=== PATIENT | male | born 1955 | race Caucasian/White ===

== ENCOUNTER 2020-10-25 05:06 | Observation (INO) | payer MEDICARE, BC ==
[2020-10-25] MEDS ORDERED: Sodium Chloride 0.9% 10 ML Syringe FLUSH PRN ×2 (05:39→06:17)
--- NOTE | 2020-10-25 05:53 | EDM.PDOC ---
<Sammy López - Last Filed: 10/25/20 08:38> ED HPI GENERAL MEDICAL PROBLEM - General Chief Complaint: Respiratory Problem Stated Complaint: [facility] Time Seen by Provider: 10/25/20 05:19 Source of Information: Reports: Patient History Limitations: Reports: No Limitations - Related Data Allergies Allergy/AdvReac Type Severity Reaction Status Date / Time amoxicillin Allergy Rash Verified 10/25/20 12:41 Home Meds: Home Meds Hydrocodone/Acetaminophen [Hydrocodone-Acetamin 7.5-325] 1 tab PO DAILY PRN 0 10/12 [History] Levothyroxine [Synthroid] 25 mcg PO ACBREAKFAST 10/25/20 [History] Zolpidem Tartrate 10 mg PO BEDTIME PRN 10/25/20 [History] Apixaban [Eliquis] 10 mg PO BID #40 tablet 10/26/20 [Rx] Azithromycin 250 mg PO DAILY #3 tablet 10/26/20 [Rx] Levothyroxine 0 mcg PO ACBREAKFAST tablet 10/26/20 [Rx] ED ROS GENERAL - Review of Systems Review Of Systems: See Below Constitutional: Reports: Fever, Chills HEENT: Reports: No Symptoms Respiratory: Reports: Shortness of Breath Cardiovascular: Reports: Chest Pain Endocrine: Reports: No Symptoms GI/Abdominal: Reports: No Symptoms : Reports: No Symptoms Musculoskeletal: Reports: No Symptoms Skin: Reports: No Symptoms Neurological: Reports: No Symptoms ED EXAM, GENERAL - Physical Exam Exam: See Below Exam Limited By: No Limitations General Appearance: Alert, No Apparent Distress Ears: Normal External Exam Nose: Normal Inspection Head: Atraumatic, Normocephalic Neck: Normal Inspection Respiratory/Chest: No Respiratory Distress, Lungs Clear, Normal Breath Sounds Cardiovascular: Regular Rate, Rhythm, No Edema, No Murmur GI/Abdominal: Soft, Non-Tender, No Organomegaly, No Mass Extremities: Normal Inspection Neurological: Alert, Oriented, No Motor/Sensory Deficits Course - Re-Assessments/Exams Free Text/Narrative Re-Assessment/Exam: 10/25/20 08:[address] Currie. Dr Currie ordered labs, EKG and a CT angio of his chest. His EKG shows a NSR with no acute changes. His WBC is elevated at 14.34. His glucose is elevated at 168. His troponin is negative. The influenza and COVID [address] angio of his chest shows right-sided pulmonary embolism within the segmental and subsegmental branches. Small right-sided pleural effusion as well as increased density within the right lung base most likely representing areas of parenchymal contusion and early infarct. Mild coronary artery calcification and incidental right renal cyst. I ordered eliquis 5mg PO. I also ordered blood cultures and lactic acid and rocephin. I am concerned he may have pneumonia also. I do not feel it is safe to send him home. I talked to our hospitalist Dr Shore and he agreed to the admission. Departure - Departure Time of Disposition: 08:50 Disposition: Refer to Observation Condition: Fair Clinical Impression: Pulmonary embolism and infarction Pneumonia Qualifiers: Pneumonia type: due to unspecified organism Laterality: right Lung location: lower lobe of lung Qualified Code(s): J18.9 - Pneumonia, unspecified organism - Discharge Information <Prashanth Currie - Last Filed: 10/27/20 17:00> ED HPI GENERAL MEDICAL PROBLEM - General Source of Information: Reports: Patient History Limitations: Reports: No Limitations - History of Present Illness INITIAL COMMENTS - FREE TEXT/NARRATIVE: Patient reports onset of symptoms 10/22/2020 Symptoms began with diarrhea On Saturday evening 10/24/2020, he developed fever and chills after getting out of the shower He woke this morning from sleep with shortness of breath and pain in right shoulder/scapular area Pain severity rated 3-4/10, primarily when he takes deep breaths, and worse when he coughs He coughs whenever he attempts to take a deep breath, and no cough was present last night He denies nausea, vomiting Denies body aches, leg pain, leg swelling Endorses mild abdominal discomfort associated with the diarrhea He spent winter in [facility] He drove back here from [place] last week over the course of 2 days He reports having COVID-19 in May 2020 He did not require medical attention, and recovered uneventfully Past Medical History Endocrine/Metabolic History: Reports: Hypothyroidism - Infectious Disease History Infectious Disease History: Reports: Novel Coronavirus - Past Surgical History GI Surgical History: Reports: Appendectomy, EGD, Hernia, Abdominal Social & Family History - Tobacco Use Tobacco Use Status *Q: Never Tobacco User ED ROS GENERAL - Review of Systems Review Of Systems: See Below Free Text/Narrative/Comment: Constitutional - fever; chills Eyes - no eye pain; no visual disturbance ENT - no rhinorrhea; no congestion; no epistaxis Cardiovascular - no chest pain Respiratory - shortness of breath; cough Gastrointestinal - no abdominal pain; no nausea; no vomiting; diarrhea Genitourinary - no dysuria Musculoskeletal - no neck pain; right upper back pain; no extremity injury Neurological - no headache; no speech disturbance; no weakness ED EXAM, GENERAL - Physical Exam Exam: See Below Free Text/Narrative:: Constitutional - awake; alert; mild pain distress Head - no facial swelling or weakness Eyes - extra ocular motion intact; conjunctiva normal; pupils equal and reactive to light ENT - no nasal deformity; no epistaxis; normal phonation; mucus membranes moist; Neck - no swelling Respiratory - normal respiratory effort; no wheezing; no stridor; few crackles right base Cardiovascular - regular rhythm; normal rate; S1; S2; grade 1-2/6 systolic murmur; trace pitting edema above both ankles GI/Abdomen - normal bowel sounds; soft; mild, generalized tenderness; no rebound; no guarding; no mass Musculoskeletal - grossly normal strength and motion; no deformity Skin - warm; dry Neurologic - normal speech; no weakness Psychiatric - normal mood and affect; memory and attention normal #1 Interpretation EKG Date: 10/25/20 Time: 05:58 Rhythm: NSR Rate (Beats/Min): 84 [place]: Normal P-Wave: Present QRS: Normal ST-T: Normal Comparison: NA - No Prior EKG Course - Vital Signs Text/Narrative:: . Considered etiologies included: Diarrhea, febrile illness, chills, pleurisy/pleuritis, pulmonary embolism, pneumonia, viral syndrome, sepsis, bacteremia, COVID-19 Symptoms and examination were discussed No specific treatment or intervention was required at initial evaluation by writ er Analgesic treatment was declined Investigations were initiated Care was endorsed to Dr López at [address] and lab results and further disposition Last Recorded V/S: Last Vital Signs Temp 36.5 C 10/26/20 11:47 Pulse 79 10/26/20 11:47 Resp 18 10/26/20 11:47 BP 109/71 10/26/20 11:47 Pulse Ox 93 L 10/26/20 11:47 - Orders/Labs/Meds Labs: Laboratory Tests 10/25/20 10/25/20 10/25/20 Range/Units 05:46 05:46 06:26 WBC 14.34 H (4.23-9.07) K/mm3 RBC 4.73 (4.63-6.08) M/mm3 Hgb 14.0 (13.7-17.5) gm/dl Hct 41.9 (40.1-51.0) % MCV 88.6 (79.0-92.2) fl MCH 29.6 (25.7-32.2) pg MCHC 33.4 (32.2-35.5) g/dl RDW Std Deviation 42.6 (35.1-43.9) fL Plt Count 234 (163-337) K/mm3 MPV 10.4 (9.4-12.3) fl Neut % (Auto) 76.7 H (34.0-67.9) % Lymph % (Auto) 7.9 L (21.8-53.1) % Thayer % (Auto) 14.4 H (5.3-12.2) % Eos % (Auto) 0.6 L (0.8-7.0) Baso % (Auto) 0.1 (0.1-1.2) % Neut # (Auto) 11.01 H (1.78-5.38) K/mm3 Lymph # (Auto) 1.13 L (1.32-3.57) K/mm3 Thayer # (Auto) 2.06 H (0.30-0.82) K/mm3 Eos # (Auto) 0.09 (0.04-0.54) K/mm3 Baso # (Auto) 0.01 (0.01-0.08) K/mm3 Manual Slide Review Abnormal smear Sodium 137 (136-145) mEq/L Potassium 4.1 (3.5-5.1) mEq/L Chloride 102 (98-107) mEq/L Carbon Dioxide 24 (21-32) mEq/L Anion Gap 15.1 H (5-15) BUN 9 (7-18) mg/dL Creatinine 1.1 (0.7-1.3) mg/dL Est Cr Clr Drug Dosing 72.51 mL/min Estimated GFR (MDRD) > 60 (>60) mL/min BUN/Creatinine Ratio 8.2 L (14-18) Glucose 168 H (80-115) mg/dL Hemoglobin A1c ( - 5.6) % Lactic Acid (0.4-2.0) mmol/L Calcium 7.9 L (8.5-10.1) mg/dL Total Bilirubin 0.9 (0.2-1.0) mg/dL AST 9 L (15-37) U/L ALT 21 (16-63) U/L Alkaline Phosphatase 57 (46-116) U/L Troponin I < 0.017 (0.00-0.056) ng/mL Total Protein 6.8 (6.4-8.2) g/dl Albumin 2.9 L (3.4-5.0) g/dl Globulin 3.9 gm/dL Albumin/Globulin Ratio 0.7 L (1-2) Procalcitonin ng/mL Influenza Type A RNA Negative (NEGATIVE) Influenza Type B RNA Negative (NEGATIVE) Mycoplasma pneumon IgM (NEGATIVE) SARS-CoV-2 RNA ([place]) Negative (NEGATIVE) 10/25/20 10/25/20 10/25/20 Range/Units 06:26 06:26 06:26 WBC (4.23-9.07) K/mm3 RBC (4.63-6.08) M/mm3 Hgb (13.7-17.5) gm/dl Hct (40.1-51.0) % MCV (79.0-92.2) fl MCH (25.7-32.2) pg MCHC (32.2-35.5) g/dl RDW Std Deviation (35.1-43.9) fL Plt Count (163-337) K/mm3 MPV (9.4-12.3) fl Neut % (Auto) (34.0-67.9) % Lymph % (Auto) (21.8-53.1) % Thayer % (Auto) (5.3-12.2) % Eos % (Auto) (0.8-7.0) Baso % (Auto) (0.1-1.2) % Neut # (Auto) (1.78-5.38) K/mm3 Lymph # (Auto) (1.32-3.57) K/mm3 Thayer # (Auto) (0.30-0.82) K/mm3 Eos # (Auto) (0.04-0.54) K/mm3 Baso # (Auto) (0.01-0.08) K/mm3 Manual Slide Review Sodium (136-145) mEq/L Potassium (3.5-5.1) mEq/L Chloride (98-107) mEq/L Carbon Dioxide (21-32) mEq/L Anion Gap (5-15) BUN (7-18) mg/dL Creatinine (0.7-1.3) mg/dL Est Cr Clr Drug Dosing mL/min Estimated GFR (MDRD) (>60) mL/min BUN/Creatinine Ratio (14-18) Glucose (80-115) mg/dL Hemoglobin A1c 6.4 H ( - 5.6) % Lactic Acid (0.4-2.0) mmol/L Calcium (8.5-10.1) mg/dL Total Bilirubin (0.2-1.0) mg/dL AST (15-37) U/L ALT (16-63) U/L Alkaline Phosphatase (46-116) U/L Troponin I (0.00-0.056) ng/mL Total Protein (6.4-8.2) g/dl Albumin (3.4-5.0) g/dl Globulin gm/dL Albumin/Globulin Ratio (1-2) Procalcitonin 0.12 H ng/mL Influenza Type A RNA (NEGATIVE) Influenza Type B RNA (NEGATIVE) Mycoplasma pneumon IgM Negative (NEGATIVE) SARS-CoV-2 RNA ([facility]) (NEGATIVE) 10/25/20 Range/Units 08:53 WBC (4.23-9.07) K/mm3 RBC (4.63-6.08) M/mm3 Hgb (13.7-17.5) gm/dl Hct (40.1-51.0) % MCV (79.0-92.2) fl MCH (25.7-32.2) pg MCHC (32.2-35.5) g/dl RDW Std Deviation (35.1-43.9) fL Plt Count (163-337) K/mm3 MPV (9.4-12.3) fl Neut % (Auto) (34.0-67.9) % Lymph % (Auto) (21.8-53.1) % Thayer % (Auto) (5.3-12.2) % Eos % (Auto) (0.8-7.0) Baso % (Auto) (0.1-1.2) % Neut # (Auto) (1.78-5.38) K/mm3 Lymph # (Auto) (1.32-3.57) K/mm3 Thayer # (Auto) (0.30-0.82) K/mm3 Eos # (Auto) (0.04-0.54) K/mm3 Baso # (Auto) (0.01-0.08) K/mm3 Manual Slide Review Sodium (136-145) mEq/L Potassium (3.5-5.1) mEq/L Chloride (98-107) mEq/L Carbon Dioxide (21-32) mEq/L Anion Gap (5-15) BUN (7-18) mg/dL Creatinine (0.7-1.3) mg/dL Est Cr Clr Drug Dosing mL/min Estimated GFR (MDRD) (>60) mL/min BUN/Creatinine Ratio (14-18) Glucose (80-115) mg/dL Hemoglobin A1c ( - 5.6) % Lactic Acid 1.2 (0.4-2.0) mmol/L Calcium (8.5-10.1) mg/dL Total Bilirubin (0.2-1.0) mg/dL AST (15-37) U/L ALT (16-63) U/L Alkaline Phosphatase (46-116) U/L Troponin I (0.00-0.056) ng/mL Total Protein (6.4-8.2) g/dl Albumin (3.4-5.0) g/dl Globulin gm/dL Albumin/Globulin Ratio (1-2) Procalcitonin ng/mL Influenza Type A RNA (NEGATIVE) Influenza Type B RNA (NEGATIVE) Mycoplasma pneumon IgM (NEGATIVE) SARS-CoV-2 RNA ([place]) (NEGATIVE) Meds: Medications Discontinued Medications Generic Name Dose Route Start Last Admin Trade Name Freq PRN Reason Stop Dose Admin Acetaminophen 650 mg 10/25/20 09:54 Acetaminophen 325 Mg Tab PO Q4H PRN Pain (Mild 1-3)/fever Hydrocodone Bitart/Acetaminophen 1 tab 10/25/20 21:08 10/26/20 08:30 Acetaminophen/Hydrocodone 325-5 Mg Tab PO 1 tab Q4H PRN Administration Pain Albuterol/Ipratropium 3 ml 10/25/20 09:54 Albuterol/Ipratropium 3.0-0.5 Mg/3 Ml Neb Soln NEB Q4H PRN Shortness Of Breath/wheezing Apixaban 5 mg 10/25/20 08:34 10/25/20 09:49 Apixaban 5 Mg Tab PO 10/25/20 08:35 5 mg ONETIME ONE Administration Apixaban 5 mg 10/25/20 09:48 10/25/20 10:13 Apixaban 5 Mg Tab PO 10/25/20 09:49 5 mg ONETIME ONE Administration Apixaban 10 mg 10/25/20 21:00 10/26/20 08:30 Apixaban 5 Mg Tab PO 10/31/20 21:01 10 mg BID LUIS ANTONIO Administration Docusate Sodium 100 mg 10/25/20 09:54 Docusate Sodium 100 Mg Cap PO BID PRN Constipation Sodium Chloride 45 mls @ 40 mls/hr 10/25/20 06:30 10/25/20 07:40 Normal Saline IV 40 mls/hr ASDIRECTED LUIS ANTONIO Administration Ceftriaxone Sodium 2 gm/ 100 mls @ 200 mls/hr 10/25/20 08:34 10/25/20 09:28 Sodium Chloride IV 10/25/20 09:03 200 mls/hr ONETIME ONE Administration Ceftriaxone Sodium 2 gm/ 100 mls @ 200 mls/hr 10/26/20 08:30 Sodium Chloride IV Q24H LUIS ANTONIO Lactated Ringer's 1,000 mls @ 100 mls/hr 10/25/20 10:00 10/25/20 10:20 Ringers, Lactated IV 10/25/20 19:59 100 mls/hr ASDIRECTED LUIS ANTONIO Administration Azithromycin 500 mg/ Sodium 250 mls @ 250 mls/hr 10/25/20 11:00 10/26/20 11:38 Chloride IV 10/27/20 11:59 250 mls/hr Q24H LUIS ANTONIO Administration Ceftriaxone Sodium 2 gm/ 100 mls @ 200 mls/hr 10/26/20 09:00 10/26/20 08:32 Sodium Chloride IV 200 mls/hr Q24H LUIS ANTONIO Administration Iopamidol 100 ml 10/25/20 06:17 10/25/20 07:40 Iopamidol 755 Mg/Ml 100 Ml Bottle IVPUSH 10/25/20 06:18 100 ml ONETIME ONE Administration Ketorolac Tromethamine 15 mg 10/25/20 21:07 10/25/20 21:39 Ketorolac 15 Mg/Ml Sdv IVPUSH 10/25/20 21:08 15 mg ONETIME ONE Administration Levothyroxine Sodium 50 mcg 10/26/20 06:00 Levothyroxine 50 Mcg Tab PO ACBREAKFAST LUIS NATONIO Levothyroxine Sodium 0 mcg 10/26/20 09:00 10/26/20 08:32 Levothyroxine 25 Mcg Tab Ptom PO 25 mcg ACBREAKFAST LUIS ANTONIO Administration Magnesium Hydroxide 30 ml 10/25/20 09:54 Magnesium Hydroxide 400 Mg/5 Ml Susp 30 Ml Cup PO Q12H PRN Constipation Miscellaneous Information 1 ea 10/26/20 09:00 10/26/20 10:08 Remove Nicotine Patch TRDERM Not Given DAILY [facility] Morphine Sulfate 4 mg 10/25/20 21:08 Morphine 4 Mg/Ml Syringe IVPUSH Q3H PRN Pain Nicotine 14 mg 10/25/20 12:45 10/26/20 08:34 Nicotine 14 Mg/24 Hr Patch TRDERM Not Given DAILY [facility] Ondansetron HCl 4 mg 10/25/20 09:54 Ondansetron 4 Mg/2 Ml Sdv IV Q6H PRN Nausea/Vomiting Sodium Chloride 10 ml 10/25/20 05:39 10/25/20 05:52 Sodium Chloride 0.9% 10 Ml Syringe FLUSH 10 ml ASDIRECTED PRN Administration Keep Vein Open Sodium Chloride 10 ml 10/25/20 06:17 10/25/20 07:40 Sodium Chloride 0.9% 10 Ml Syringe FLUSH 10 ml ONETIME PRN Administration Keep Vein Open Sepsis Event Note (ED) - Evaluation Sepsis Screening Result: No Definite Risk
[2020-10-25] MEDS ORDERED: Iopamidol 755 Mg/ML 100 ML Bottle IVPUSH ONE (06:17)
[2020-10-25 06:29] LABS: CORONAVIRUS COVID-19 NAA NEGATIVE (NEGATIVE)
[2020-10-25] MEDS ORDERED: Sodium Chloride 0.9% 45 ML IV SCH (06:30)
--- NOTE | 2020-10-25 08:02 | CT ---
CT chest Technique: Multiple axial sections through the chest were obtained. Study was performed as a CT pulmonary angiogram. Comparison: No prior chest imaging is available. Findings: There are filling defects being seen within the segmental and subsegmental branches within the right lower lung. No left-sided pulmonary embolism is seen. Thoracic aorta shows no aneurysm. No mediastinal adenopathy is seen. Mild coronary artery calcification is noted. Visualized upper abdominal structures show right-sided renal cyst. No acute upper abdominal abnormality is appreciated. Small right-sided pleural effusion is seen. Increased parenchymal density is noted within the right lung base most likely representing areas of parenchymal hemorrhage/infarct. Bone window settings were reviewed which show slight degenerative change scattered within the spine. No acute osseous abnormality is appreciated. Impression: 1. Right-sided pulmonary embolism within the segmental and subsegmental branches. 2. Small right-sided pleural effusion as well as increased density within the right lung base most likely representing areas of parenchymal contusion and early infarct. 3. Mild coronary artery calcification and incidental right renal cyst. Diagnostic code #5
[2020-10-25] MEDS ORDERED: cefTRIAXone 2 GM in Sodium Chloride 0.9% 100 ML IV ONE (08:34)
[2020-10-25] MEDS ORDERED: Apixaban 5 MG Tab PO ONE ×2 (08:34→09:48)
--- NOTE | 2020-10-25 08:50 | PCM.HP.2 ---
<MoneJamil - Last Filed: 10/25/20 12:14> H&P History of Present Illness - General Admit Problem/Dx: Admission Diagnosis/Problem Admission Diagnosis/Problem Pulmonary embolism with infarction - Related Data Allergies/Adverse Reactions: Allergies Allergy/AdvReac Type Severity Reaction Status Date / Time amoxicillin Allergy Rash Verified 10/25/20 12:41 Home Medications: Home Meds Hydrocodone/Acetaminophen [Hydrocodone-Acetamin 7.5-325] 1 tab PO DAILY PRN 10/25/20 [History] Levothyroxine [Synthroid] 25 mcg PO ACBREAKFAST 10/25/20 [History] Zolpidem Tartrate 10 mg PO BEDTIME PRN 10/25/20 [History] Exam - Vital Signs Vital Signs: Last Vital Signs Temp 98.6 F 10/25/20 09:20 Pulse 83 10/25/20 09:44 Resp 22 H 10/25/20 09:44 BP 142/78 H 10/25/20 09:44 Pulse Ox 96 10/25/20 09:44 - Patient Data Lab Results Last 24 hrs: Laboratory Results - last 24 hr 10/25/20 10/25/20 10/25/20 Range/Units 05:46 05:46 06:26 WBC 14.34 H (4.23-9.07) K/mm3 RBC 4.73 (4.63-6.08) M/mm3 Hgb 14.0 (13.7-17.5) gm/dl Hct 41.9 (40.1-51.0) % MCV 88.6 (79.0-92.2) fl MCH 29.6 (25.7-32.2) pg MCHC 33.4 (32.2-35.5) g/dl RDW Std Deviation 42.6 (35.1-43.9) fL Plt Count 234 (163-337) K/mm3 MPV 10.4 (9.4-12.3) fl Neut % (Auto) 76.7 H (34.0-67.9) % Lymph % (Auto) 7.9 L (21.8-53.1) % [place] % (Auto) 14.4 H (5.3-12.2) % Eos % (Auto) 0.6 L (0.8-7.0) Baso % (Auto) 0.1 (0.1-1.2) % Neut # (Auto) 11.01 H (1.78-5.38) K/mm3 Lymph # (Auto) 1.13 L (1.32-3.57) K/mm3 [place] # (Auto) 2.06 H (0.30-0.82) K/mm3 Eos # (Auto) 0.09 (0.04-0.54) K/mm3 Baso # (Auto) 0.01 (0.01-0.08) K/mm3 Manual Slide Review Abnormal smear Sodium 137 (136-145) mEq/L Potassium 4.1 (3.5-5.1) mEq/L Chloride 102 (98-107) mEq/L Carbon Dioxide 24 (21-32) mEq/L Anion Gap 15.1 H (5-15) BUN 9 (7-18) mg/dL Creatinine 1.1 (0.7-1.3) mg/dL Est Cr Clr Drug Dosing 72.51 mL/min Estimated GFR (MDRD) > 60 (>60) mL/min BUN/Creatinine Ratio 8.2 L (14-18) Glucose 168 H (80-115) mg/dL Hemoglobin A1c ( - 5.6) % Lactic Acid (0.4-2.0) mmol/L Calcium 7.9 L (8.5-10.1) mg/dL Total Bilirubin 0.9 (0.2-1.0) mg/dL AST 9 L (15-37) U/L ALT 21 (16-63) U/L Alkaline Phosphatase 57 (46-116) U/L Troponin I < 0.017 (0.00-0.056) ng/mL Total Protein 6.8 (6.4-8.2) g/dl Albumin 2.9 L (3.4-5.0) g/dl Globulin 3.9 gm/dL Albumin/Globulin Ratio 0.7 L (1-2) Influenza Type A RNA Negative (NEGATIVE) Influenza Type B RNA Negative (NEGATIVE) Mycoplasma pneumon IgM (NEGATIVE) SARS-CoV-2 RNA ([place]) Negative (NEGATIVE) 10/25/20 10/25/20 10/25/20 Range/Units 06:26 06:26 08:53 WBC (4.23-9.07) K/mm3 RBC (4.63-6.08) M/mm3 Hgb (13.7-17.5) gm/dl Hct (40.1-51.0) % MCV (79.0-92.2) fl MCH (25.7-32.2) pg MCHC (32.2-35.5) g/dl RDW Std Deviation (35.1-43.9) fL Plt Count (163-337) K/mm3 MPV (9.4-12.3) fl Neut % (Auto) (34.0-67.9) % Lymph % (Auto) (21.8-53.1) % [place] % (Auto) (5.3-12.2) % Eos % (Auto) (0.8-7.0) Baso % (Auto) (0.1-1.2) % Neut # (Auto) (1.78-5.38) K/mm3 Lymph # (Auto) (1.32-3.57) K/mm3 [place] # (Auto) (0.30-0.82) K/mm3 Eos # (Auto) (0.04-0.54) K/mm3 Baso # (Auto) (0.01-0.08) K/mm3 Manual Slide Review Sodium (136-145) mEq/L Potassium (3.5-5.1) mEq/L Chloride (98-107) mEq/L Carbon Dioxide (21-32) mEq/L Anion Gap (5-15) BUN (7-18) mg/dL Creatinine (0.7-1.3) mg/dL Est Cr Clr Drug Dosing mL/min Estimated GFR (MDRD) (>60) mL/min BUN/Creatinine Ratio (14-18) Glucose (80-115) mg/dL Hemoglobin A1c 6.4 H ( - 5.6) % Lactic Acid 1.2 (0.4-2.0) mmol/L Calcium (8.5-10.1) mg/dL Total Bilirubin (0.2-1.0) mg/dL AST (15-37) U/L ALT (16-63) U/L Alkaline Phosphatase (46-116) U/L Troponin I (0.00-0.056) ng/mL Total Protein (6.4-8.2) g/dl Albumin (3.4-5.0) g/dl Globulin gm/dL Albumin/Globulin Ratio (1-2) Influenza Type A RNA (NEGATIVE) Influenza Type B RNA (NEGATIVE) Mycoplasma pneumon IgM Negative (NEGATIVE) SARS-CoV-2 RNA ([place]) (NEGATIVE) Result Diagrams: 10/25/20 05:46 10/25/20 06:26 Sepsis Event Note - Focused Exam Vital Signs: Vital Signs Temp Pulse Pulse Resp BP BP Pulse Ox 10/25/20 09:44 83 22 H 142/78 H 96 10/25/20 09:20 98.6 F 80 20 140/85 94 L 10/25/20 05:14 97.6 F 90 18 143/80 H 95 Orders Last 24hrs: Active Orders 24 hr Category Date Time Status Patient Status [ADT] Routine ADT 10/25/20 09:57 Active Acapella [RT Chest Physiotherapy] [RC] ASDIRECTED Care 10/25/20 09:56 Active Cardiac Monitoring [RC] CONTINUOUS Care 10/25/20 09:54 Active Height and Weight [RC] 06 Care 10/25/20 09:54 Active Intake and Output [RC] 04,16 Care 10/25/20 09:54 Active Oxygen Therapy [RC] PRN Care 10/25/20 09:54 Active Pulse Oximetry [RC] PRN Care 10/25/20 09:54 Active RT Aerosol Therapy [RC] ASDIRECTED Care 10/25/20 09:55 Active RT Incentive Spirometry [RC] Q2HWA Care 10/25/20 09:56 Active Up With Assistance [RC] ASDIRECTED Care 10/25/20 09:54 Active VTE/DVT Education [RC] PER UNIT ROUTINE Care 10/25/20 09:54 Active Vital Signs [RC] Q4HR Care 10/25/20 09:54 Active Consult to Bread And Pastry Baker [CONS] Routine Cons 10/25/20 11:19 Active Respiratory Care Assess and Treatment [CONS] Routine Cons 10/25/20 09:54 Ac tive Consistent Carbohydrate Diet [DIET] Diet 10/25/20 Lunch Active BASIC METABOLIC PANEL,BMP [CHEM] AM Lab 10/26/20 05:11 Ordered BASIC METABOLIC PANEL,BMP [CHEM] AM Lab 10/27/20 05:11 Ordered BASIC METABOLIC PANEL,BMP [CHEM] AM Lab 10/28/20 05:11 Ordered BASIC METABOLIC PANEL,BMP [CHEM] AM Lab 10/29/20 05:11 Ordered CBC WITH AUTO DIFF [HEME] AM Lab 10/26/20 05:11 Ordered CBC WITH AUTO DIFF [HEME] AM Lab 10/27/20 05:11 Ordered CBC WITH AUTO DIFF [HEME] AM Lab 10/28/20 05:11 Ordered CBC WITH AUTO DIFF [HEME] AM Lab 10/29/20 05:11 Ordered CULTURE BLOOD [BC] Stat Lab 10/25/20 08:53 Received CULTURE BLOOD [BC] Stat Lab 10/25/20 09:07 Received CULTURE SPUTUM + SMEAR [RM] Routine Lab 10/25/20 09:56 Ordered MAGNESIUM [CHEM] AM Lab 10/26/20 05:11 Ordered MAGNESIUM [CHEM] AM Lab 10/27/20 05:11 Ordered MAGNESIUM [CHEM] AM Lab 10/28/20 05:11 Ordered MAGNESIUM [CHEM] AM Lab 10/29/20 05:11 Ordered PROCALCITONIN [REF] Routine Lab 10/25/20 06:26 Received Acetaminophen [TylenoL] Med 10/25/20 09:54 Active 650 mg PO Q4H PRN Albuterol/Ipratropium [DuoNeb 3.0-0.5 MG/3 ML] Med 10/25/20 09:54 Active 3 ml NEB Q4H PRN Apixaban [Eliquis] Med 10/25/20 21:00 Active 10 mg PO BID Azithromycin [Zithromax] 500 mg Med 10/25/20 11:00 Active Sodium Chloride 0.9% [Normal Saline (AdvBag)] 250 ml IV Q24H Docusate Sodium [Colace] Med 10/25/20 09:54 Active 100 mg PO BID PRN Lactated Ringers [Ringers, Lactated] 1,000 ml Med 10/25/20 10:00 Active IV ASDIRECTED Levothyroxine [Synthroid] Med 10/26/20 06:00 Active 50 mcg PO ACBREAKFAST Magnesium Hydroxide [Milk of Magnesia] Med 10/25/20 09:54 Active 30 ml PO Q12H PRN Ondansetron [Zofran] Med 10/25/20 09:54 Active 4 mg IV Q6H PRN Sodium Chloride 0.9% [Normal Saline] 45 ml Med 10/25/20 06:30 Active IV ASDIRECTED Sodium Chloride 0.9% [Saline Flush] Med 10/25/20 05:39 Active 10 ml FLUSH ASDIRECTED PRN Sodium Chloride 0.9% [Saline Flush] Med 10/25/20 06:17 Active 10 ml FLUSH ONETIME PRN cefTRIAXone [Rocephin] 2 gm Med 10/26/20 08:30 Active Sodium Chloride 0.9% [Normal Saline] 100 ml IV Q24H Blood Culture x2 Reflex Set [OM.PC] Stat Oth 10/25/20 08:33 Ordered Isolation [COMM] Routine Oth 10/25/20 09:56 Ordered Peripheral IV Insertion Adult [OM.PC] Stat Oth 10/25/20 05:39 Ordered Resuscitation Status Routine Resus Stat 10/25/20 09:54 Ordered EKG 12 Lead [EK] Stat Ther 10/25/20 05:38 Ordered Medication Orders Acetaminophen (Acetaminophen 325 Mg Tab) 650 mg PO Q4H PRN PRN Reason: Pain (Mild 1-3)/fever Albuterol/Ipratropium (Albuterol/Ipratropium 3.0-0.5 Mg/3 Ml Neb Soln) 3 ml NEB Q4H PRN PRN Reason: Shortness Of Breath/wheezing Apixaban (Apixaban 5 Mg Tab) 10 mg PO BID [facility] Stop: 10/31/20 21:01 Docusate Sodium (Docusate Sodium 100 Mg Cap) 100 mg PO BID PRN PRN Reason: Constipation Sodium Chloride (Normal Saline) 45 mls @ 40 mls/hr IV ASDIRECTED [facility] Last Admin: 10/25/20 07:40 Dose: 40 mls/hr Documented by: HENRY Ceftriaxone Sodium 2 gm/ (Sodium Chloride) 100 mls @ 200 mls/hr IV Q24H [facility] Lactated Ringer's (Ringers, Lactated) 1,000 mls @ 100 mls/hr IV ASDIRECTED [facility] Stop: 10/25/20 19:59 Last Admin: 10/25/20 10:20 Dose: 100 mls/hr Documented by: DANIS Azithromycin 500 mg/ Sodium (Chloride) 250 mls @ 250 mls/hr IV Q24H [facility] Stop: 10/27/20 11:59 Last Admin: 10/25/20 11:34 Dose: 250 mls/hr Documented by: DANIS Levothyroxine Sodium (Levothyroxine 50 Mcg Tab) 50 mcg PO ACBREAKFAST [facility] Magnesium Hydroxide (Magnesium Hydroxide 400 Mg/5 Ml Susp 30 Ml Cup) 30 ml PO Q12H PRN PRN Reason: Constipation Ondansetron HCl (Ondansetron 4 Mg/2 Ml Sdv) 4 mg IV Q6H PRN PRN Reason: Nausea/Vomiting Sodium Chloride (Sodium Chloride 0.9% 10 Ml Syringe) 10 ml FLUSH ASDIRECTED PRN PRN Reason: Keep Vein Open Last Admin: 10/25/20 05:52 Dose: 10 ml Documented by: CARLY Sodium Chloride (Sodium Chloride 0.9% 10 Ml Syringe) 10 ml FLUSH ONETIME PRN PRN Reason: Keep Vein Open Last Admin: 10/25/20 07:40 Dose: 10 ml Documented by: HENRY Assessment/Plan Comment:: Patient seen and examined agree with the advanced practitioner's management to include assessment and plan. I have discussed plan of care have independently evaluated the patient, laboratory work-up, imaging studies, prior admission/outpatient records have been reviewed as pertinent to current admission A: Submassive pulmonary embolism -Issues right-sided pulmonary embolism within the segmental and subsegmental branches, small right-sided pleural effusion as well as increased density within the right lung base most likely representing areas of early infarction -Bilateral lower extremity Dopplers negative for deep vein thrombosis -Travel Hx, recent car ride from [place] -No acute hypoxic respiratory failure Pulmonary Infarction -Possible early/developing infarction predicated on CTA DM II -A1C 6.4% Plan: -Eliquis 10mg BID x 7 days then 5mg BID -Echo to rule out R heart strain -Oxygen to maintain SPO2 greater than 90% -If patient becomes hypotensive consider TPA for treatment of massive pulmonary embolism -Outpatient workup for age-appropriate cancer screening <Davin Pyle - Last Filed: 10/25/20 12:48> H&P History of Present Illness - General Date of Service: 10/25/20 Source of Information: Patient, Provider, RN, RN Notes Reviewed History Limitations: Reports: No Limitations - History of Present Illness Initial Comments - Free Text/Narative: This is a 64-year-old male who presents to ED in the flatwork finisher hours of 10/25/2020 via [facility] with a respiratory problem. Patient reports symptoms began on 10/22/2020. He states he started with diarrhea and then on 10/24/2020 he noted fever and chills. Today he noted shortness of breath and pain in his right shoulder scapular area. Rates the pain of 3-4 out of 10. States it is worse when he takes a deep breath or coughs. Denies any nausea, vomiting, body aches, leg pain, leg swelling but does have mild abdominal discomfort associated with the diarrhea. He states he recently drove back from [facility] where he lives during the winter. States he did have COVID-19 in May 2020 and he was not hospitalized. Reports he recovered at home. Twelve-lead EKG is obtained showing a sinus rhythm at 84 bpm with no acute ST changes. In the ED temp was 97.6 Fahrenheit. Pulse 90. Respirations 18. Blood pressure 143/80. Pulse ox 95%. Labs are obtained showing a leukocytosis at 14.34. Hemoglobin 14.0. Platelet 234,000. Neutrophils are elevated 76.7%. Sodium 137. Potassium 4.1. Chloride 102. Carbon oxide 24. Anion gap is slightly elevated at 15.1. BUN is 9, creatinine 1.1, GFR greater than 60. Glucose is elevated at 168. Calcium is 7.9. Bilirubin 0.9. AST is 9, ALT 21, alkaline phosphatase 57. Troponin is less than 0.017. Albumin is 2.9. Influenza a and B are both negative. SARS Covid 2 RNA is negative. CTA of the chest is obtained showing a right-sided pulmonary embolism within the segmental and subsegmental branches. There is also a small right-sided pleural effusion as well as increased density within the right lung base most likely representing areas of parenchymal contusion and early infarct. Mild coronary artery calcification and incidental right renal cyst is also noted. Given 5 mg p.o. Eliquis. Lactic acid is 1.2. Blood cultures are obtained. There is some concern that he may have a pneumonia he started on 2 g of Rocephin. He subsequently mated to the medical floor observation status for management of his PE and possible pneumonia. He carries a history of hypothyroidism and is on levothyroxine. He is not a smoker but he does utilize 1/2 a can of chewing tobacco daily. He is a full code. His PCP was Dr. Yu who recently retired. He will need to establish with a new provider Past Medical History Endocrine/Metabolic History: Reports: Hypothyroidism - Infectious Disease History Infectious Disease History: Reports: Novel Coronavirus - Past Surgical History GI Surgical History: Reports: Appendectomy, EGD, Hernia, Abdominal Social & Family History - Tobacco Use Tobacco Use Status *Q: Never Tobacco User H&P Review of Systems - Review of Systems: Review Of Systems: See Below General: Reports: Fever, Chills. Denies: Malaise, Weakness, Fatigue HEENT: Reports: No Symptoms. Denies: Headaches, Sore Throat Pulmonary: Reports: Shortness of Breath, Pleuritic Chest Pain (right sided ), Cough. Denies: Wheezing, Sputum Cardiovascular: Reports: Chest Pain, Dyspnea on Exertion. Denies: Palpitations, Edema Gastrointestinal: Reports: No Symptoms. Denies: Abdominal Pain, Constipation, Diarrhea, Nausea, Vomiting Genitourinary: Reports: No Symptoms. Denies: Pain Musculoskeletal: Reports: No Symptoms. Denies: Leg Pain Skin: Reports: No Symptoms. Denies: Cyanosis Psychiatric: Reports: No Symptoms. Denies: Confusion Neurological: Reports: No Symptoms. Denies: Confusion, Dizziness, Headache, Numbness, Pre-Existing Deficit, Seizure, Syncope, Tingling, Tremors, Difficulty Walking, Weakness, Gait Disturbance Hematologic/Lymphatic: Reports: No Symptoms Immunologic: Reports: No Symptoms Exam - Exam Exam: See Below - Vital Signs Vital Signs: Last Vital Signs Temp 97.6 F 10/25/20 05:14 Pulse 90 10/25/20 05:14 Resp 18 10/25/20 05:14 BP 143/80 H 10/25/20 05:14 Pulse Ox 95 10/25/20 05:14 Weight: 280 lb - Exam Quality Assessment: DVT Prophylaxis. No: Supplemental Oxygen, Urinary Catheter General: Alert, Oriented, Cooperative. No: Mild Distress HEENT: Conjunctiva Clear, EACs Clear, Hearing Intact, Mucosa Moist & [place], Posterior Pharynx Clear, PERRLA Neck: Supple, Trachea Midline Lungs: Clear to Auscultation, Normal Respiratory Effort Cardiovascular: Regular Rate, Regular Rhythm GI/Abdominal Exam: Normal Bowel Sounds, Soft, Non-Tender, No Distention (Male) Exam: Deferred Rectal (Males) Exam: Deferred Back Exam: Normal Inspection, Full Range of Motion Extremities: Normal Inspection, Normal Range of Motion, Non-Tender, No Pedal Edema, Normal Capillary Refill, Other (No clinical signs of DVT). No: Increased Warmth, Redness Peripheral Pulses: 2+: Radial (L), Radial (R), Dorsalis Pedis (L), Dorsalis Pedis (R) Skin: Warm, Dry, Intact Neurological: Cranial Nerves Intact (Grossly ) Neuro Extensive - Mental Status: Alert, Oriented x3, Normal Mood/Affect - Patient Data Lab Results Last 24 hrs: Laboratory Results - last 24 hr 10/25/20 10/25/20 10/25/20 Range/Units 05:46 05:46 06:26 WBC 14.34 H (4.23-9.07) K/mm3 RBC 4.73 (4.63-6.08) M/mm3 Hgb 14.0 (13.7-17.5) gm/dl Hct 41.9 (40.1-51.0) % MCV 88.6 (79.0-92.2) fl MCH 29.6 (25.7-32.2) pg MCHC 33.4 (32.2-35.5) g/dl RDW Std Deviation 42.6 (35.1-43.9) fL Plt Count 234 (163-337) K/mm3 MPV 10.4 (9.4-12.3) fl Neut % (Auto) 76.7 H (34.0-67.9) % Lymph % (Auto) 7.9 L (21.8-53.1) % [place] % (Auto) 14.4 H (5.3-12.2) % Eos % (Auto) 0.6 L (0.8-7.0) Baso % (Auto) 0.1 (0.1-1.2) % Neut # (Auto) 11.01 H (1.78-5.38) K/mm3 Lymph # (Auto) 1.13 L (1.32-3.57) K/mm3 [place] # (Auto) 2.06 H (0.30-0.82) K/mm3 Eos # (Auto) 0.09 (0.04-0.54) K/mm3 Baso # (Auto) 0.01 (0.01-0.08) K/mm3 Manual Slide Review Abnormal smear Sodium 137 (136-145) mEq/L Potassium 4.1 (3.5-5.1) mEq/L Chloride 102 (98-107) mEq/L Carbon Dioxide 24 (21-32) mEq/L Anion Gap 15.1 H (5-15) BUN 9 (7-18) mg/dL Creatinine 1.1 (0.7-1.3) mg/dL Est Cr Clr Drug Dosing 72.51 mL/min Estimated GFR (MDRD) > 60 (>60) mL/min BUN/Creatinine Ratio 8.2 L (14-18) Glucose 168 H (80-115) mg/dL Calcium 7.9 L (8.5-10.1) mg/dL Total Bilirubin 0.9 (0.2-1.0) mg/dL AST 9 L (15-37) U/L ALT 21 (16-63) U/L Alkaline Phosphatase 57 (46-116) U/L Troponin I < 0.017 (0.00-0.056) ng/mL Total Protein 6.8 (6.4-8.2) g/dl Albumin 2.9 L (3.4-5.0) g/dl Globulin 3.9 gm/dL Albumin/Globulin Ratio 0.7 L (1-2) Influenza Type A RNA Negative (NEGATIVE) Influenza Type B RNA Negative (NEGATIVE) SARS-CoV-2 RNA ([place]) Negative (NEGATIVE) Result Diagrams: 10/25/20 05:46 10/25/20 06:26 Sepsis Event Note - Evaluation Sepsis Screening Result: No Definite Risk - Focused Exam Vital Signs: Vital Signs Temp Pulse Resp BP Pulse Ox 10/25/20 05:14 97.6 F 90 18 143/80 H 95 - Problem List (1) Hyperglycemia SNOMED Code(s): 92667827 ICD Code: R73.9 - HYPERGLYCEMIA, UNSPECIFIED Status: Acute Priority: High Current Visit: Yes (2) Hypothyroidism SNOMED Code(s): 91706707 ICD Code: E03.9 - HYPOTHYROIDISM, UNSPECIFIED Status: Chronic Priority: Low Current Visit: No Qualifiers: Hypothyroidism type: unspecified Qualified Code(s): E03.9 - Hypothyroidism, unspecified (3) Pneumonia SNOMED Code(s): 099466282 ICD Code: J18.9 - PNEUMONIA, UNSPECIFIED ORGANISM Status: Acute Priority: High Current Visit: Yes Qualifiers: Pneumonia type: due to unspecified organism Laterality: right Lung location: lower lobe of lung Qualified Code(s): J18.9 - Pneumonia, unspecified organism (4) Pulmonary embolism and infarction SNOMED Code(s): 3775149728782 ICD Code: I26.99 - OTHER PULMONARY EMBOLISM WITHOUT ACUTE COR PULMONALE Status: Acute Priority: High Current Visit: Yes (5) Obesity (BMI 35.0-39.9 without comorbidity) SNOMED Code(s): 915893447, 599272420 ICD Code: E66.9 - OBESITY, UNSPECIFIED Status: Acute Priority: Medium Current Visit: Yes (6) Chewing tobacco use SNOMED Code(s): 40153387 ICD Code: Z72.0 - TOBACCO USE Status: Chronic Priority: Medium Current Visit: Yes (7) History of prediabetes SNOMED Code(s): 350888331, 967171998 ICD Code: Z87.898 - PERSONAL HISTORY OF OTHER SPECIFIED CONDITIONS Status: Chronic Priority: High Current Visit: Yes Problem List Initiated/Reviewed/Updated: Yes Orders Last 24hrs: Active Orders 24 hr Category Date Time Status EKG Documentation Completion [RC] ASDIRECTED Care 10/25/20 05:41 Active Peripheral IV Care [RC] . DIRECTED Care 10/25/20 05:41 Active CULTURE BLOOD [BC] Stat Lab 10/25/20 08:33 Ordered CULTURE BLOOD [BC] Stat Lab 10/25/20 08:33 Ordered LACTIC ACID W/ REFLEX [LACTATE SEPSIS W/ REFLEX] [CHEM] Lab 10/25/20 08:33 Ordered Stat Sodium Chloride 0.9% [Normal Saline] 45 ml Med 10/25/20 06:30 Active IV ASDIRECTED Sodium Chloride 0.9% [Saline Flush] Med 10/25/20 05:39 Active 10 ml FLUSH ASDIRECTED PRN Sodium Chloride 0.9% [Saline Flush] Med 10/25/20 06:17 Active 10 ml FLUSH ONETIME PRN cefTRIAXone [Rocephin] 2 gm Med 10/25/20 08:34 Active Sodium Chloride 0.9% [Normal Saline] 100 ml IV ONETIME Blood Culture x2 Reflex Set [OM.PC] Stat Oth 10/25/20 08:33 Ordered Peripheral IV Insertion Adult [OM.PC] Stat Oth 10/25/20 05:39 Ordered EKG 12 Lead [EK] Stat Ther 10/25/20 05:38 Ordered Medication Orders Sodium Chloride (Normal Saline) 45 mls @ 40 mls/hr IV ASDIRECTED [facility] AN[facility] Last Admin: 10/25/20 07:40 Dose: 40 mls/hr Documented by: HENRY Ceftriaxone Sodium 2 gm/ (Sodium Chloride) 100 mls @ 200 mls/hr IV ONETIME ONE Stop: 10/25/20 09:03 Sodium Chloride (Sodium Chloride 0.9% 10 Ml Syringe) 10 ml FLUSH ASDIRECTED PRN PRN Reason: Keep Vein Open Last Admin: 10/25/20 05:52 Dose: 10 ml Documented by: CARLY Sodium Chloride (Sodium Chloride 0.9% 10 Ml Syringe) 10 ml FLUSH ONETIME PRN PRN Reason: Keep Vein Open Last Admin: 10/25/20 07:40 Dose: 10 ml Documented by: HENRY Assessment/Plan Comment:: Assessment - day of admission 10/25/2020 * Reports diarrhea began 10/22/2020, followed by fever and chills on 10/24/2020 and SOB on 10/25/2020 * Returned from [facility] and spent 2 days in the car * Reports -10/01 pain with deep breath and cough * Hx/o hypothyroidism on levothyroxine, pre-diabetes controlled by diet * Reports prior COVID-19 infection in May 2020 which resolved at home * 12-lead EKG showed NSR at [address] changes, no signs of right heart strain * Labs in ED: * WBC 14.34 * Hemoglobin 14.0 * Platelet 234,000 * Neutrophils elevated 76.7% * Sodium 137 * Potassium 4.1 * Carbon dioxide 24 * Anion gap 15.1 * BUN 9, creatinine 1.1, GFR greater than 60 * Glucose 168 * Calcium 7.9 * Total bilirubin 0.9 * AST 9, ALT 21, alkaline phosphatase 57 * Troponin less than 0.017 * Albumin 2.9 * Influenza a and B both negative * SARS-CoV-2 RNA negative * Lactic acid 1.2 * Blood cultures obtained and pending * CTA in ED: * 1. Right-sided pulmonary embolism within the segmental and subsegmental branches. * 2. Small right-sided pleural effusion as well as increased density within the right lung base most likely representing areas of parenchymal contusion and early infarct. * 3. Mild coronary artery calcification incidental right renal cyst. * Given 5 mg Eliquis and 2 g Rocephin in ED. * Sepsis screen: Questionable PNA. Leukocytosis but no tachycardia, tachypnea or fever. No organ dysfunction. * Does not meet criteria PLAN: Pulmonary embolism and infarction * Give 5mg Eliquis now to bring AM dose up to 10 mg * 10mg Eliquis BID for 7 days then 5mg BID * Telemetry * Lower extremity US to R/O DVT * O2 as needed * Echocardiogram ordered Pneumonia * Rocephin 2gm daily * Azithromycin 500mg for 3 days * IS/acapella * RT consult * PRN Duonebs * O2 as needed to achieve saturations >92% * Sputum culture if able to produce * IV fluids as ordered * Tylenol for fevers * Blood cultures pending * Check mycoplasma Hyperglycemia Obesity Prediabetes * Monitor blood glucose readings * Check A1c * Bread And Pastry Baker consultation Hypothyroidism * No acute concerns * Home levothyroxine Chewing tobacco use * Nicotine patches ordered - patient refusing at this time. * Cessation counseling * Offer nicotine patches at discharge Code Status: Full PCP: He was seeing Dr. Yu - will need to establish with a new PCP. DVT prophylaxis: Eliquis for PE treatment Disposition: Patient mated observation status with telemetry for management of PE and pneumonia. Likely discharge in 1 to 2 days pending continued stability. - Mortality Measure Prognosis:: Good
[2020-10-25] MEDS ORDERED: Acetaminophen 325 MG Tab PO PRN (09:54)
[2020-10-25] MEDS ORDERED: Albuterol/Ipratropium 3.0-0.5 MG/3 ML Neb Soln NEB PRN (09:54)
[2020-10-25] MEDS ORDERED: Magnesium Hydroxide 400 MG/5 ML Susp 30 ML Cup PO PRN (09:54)
[2020-10-25] MEDS ORDERED: Docusate Sodium 100 MG Cap PO PRN (09:54)
[2020-10-25] MEDS ORDERED: Ondansetron 4 MG/2 ML SDV IV PRN (09:54)
[2020-10-25] MEDS ORDERED: Lactated Ringers 1,000 ML IV SCH (10:00)
[2020-10-25 10:53] LABS: HEMOGLOBIN A1C 6.4 %
[2020-10-25] MEDS: Azithromycin 500 MG in Sodium Chloride 0.9% 250 ML IV SCH (11:34)
--- NOTE | 2020-10-25 11:50 | US ---
Bilateral deep venous ultrasound: Duplex and color Doppler evaluation was obtained of the right and left common femoral, superficial femoral, proximal greater saphenous, popliteal, posterior tibial and peroneal veins. Technologist's note: Peroneal veins not well visualized Comparison: No prior venous imaging is available. Findings: Normal phasic flow, augmentation and compression is seen. Impression: 1. Neither posterior tibial veins are well visualized. 2. Other portions of the deep veins of both lower extremities show no evidence of deep venous thrombosis. Diagnostic code #2
[2020-10-25] MEDS: Nicotine 14 MG/24 Hr Patch TRDERM SCH (13:55)
[2020-10-25] MEDS ORDERED: Ketorolac 15 MG/ML SDV IVPUSH ONE (21:07)
[2020-10-25] MEDS ORDERED: Morphine 4 MG/ML Syringe IVPUSH PRN (21:08)
[2020-10-25] MEDS: Apixaban 5 MG Tab PO SCH (21:33)
[2020-10-25] MEDS: Acetaminophen/HYDROcodone 325-5 MG Tab PO PRN (21:34)
[2020-10-26] MEDS ORDERED: Levothyroxine 50 MCG Tab PO SCH (06:00)
[2020-10-26] MEDS: Acetaminophen/HYDROcodone 325-5 MG Tab PO PRN (08:30)
[2020-10-26] MEDS: Apixaban 5 MG Tab PO SCH (08:30)
[2020-10-26] MEDS ORDERED: cefTRIAXone 2 GM in Sodium Chloride 0.9% 100 ML IV SCH ×2 (08:30→09:00)
[2020-10-26] MEDS: Nicotine 14 MG/24 Hr Patch TRDERM SCH (08:34)
[2020-10-26] MEDS ORDERED: LEVOTHYROXINE 25 MCG PO SCH (09:00)
[2020-10-26] MEDS: Azithromycin 500 MG in Sodium Chloride 0.9% 250 ML IV SCH (11:38)
--- NOTE | 2020-10-26 12:10 | PCM.DCSUM1 ---
Discharge Summary - Hospital Course HPI Initial Comments: This is a 64-year-old male who presents to ED on 10/25/2020 via [facility] with a respiratory problem. Patient reports symptoms began on 10/22/2020. He states he started with diarrhea and then on 10/24/2020 he noted fever and chills. Today he noted shortness of breath and pain in his right shoulder scapular area. Rates the pain of 3-4 out of 10. States it is worse when he takes a deep breath or coughs. Denies any nausea, vomiting, body aches, leg pain, leg swelling but does have mild abdominal discomfort associated with the diarrhea. He states he recently drove back from [facility] where he lives during the winter. States he did have COVID-19 in May 2020 and he was not hospitalized. Reports he recovered at home. Full work-up was completed in the emergency department. Twelve-lead EKG did show a sinus rhythm with no acute ST changes. Labs in the emergency department did show the patient having an elevated white count of 14.34. Neutrophil was elevated at 76.7%. Glucose was elevated at 168. Troponin was less than 0.017. Patient was swabbed for Covid, influenza A and B. All of these resulted back negative. CTA of the chest was completed and it showed a right-sided pulmonary embolism with segmental and subsegmental branches. There was also a small right-sided pleural effusion as well as increased density within the right lung base most likely representing areas of parenchymal contusion and early infarct. Patient was started on Eliquis 5 mg p.o. in the emergency department. There was some concern that the patient also had pneumonia and he was started on 2 g of Rocephin. Patient was managed on the medical surgical unit for PE and pneumonia. His Eliquis dosage was increased to 10 mg twice daily. In addition to the 2 g of Rocephin daily he was started on Zithromax 500 mg daily to treat the pneumonia. Blood cultures were negative. The patient also did have an echocardiogram which showed: 1. Left ventricular ejection fraction, by visual estimation, is 60 to 65%. 2. Normal right ventricular systolic function. 3. Right ventricular size is normal. 4. Aortic valve is structurally normal and tricuspid. 5. Trace mitral valve regurgitation. 6. Trace tricuspid valve regurgitation. 7. No regional wall motion abnormalities The patient remained on room air while in the hospital. He was also using his incentive spirometer and flutter valve as directed. Was encouraged to increase ambulation and has been ambulating around the unit and tolerating that well. He carries a history of hypothyroidism and is on levothyroxine. He is not a smoker but he does utilize 1/2 a can of chewing tobacco daily. He is a full code. His PCP was Dr. Yu, who recently retired. Diagnosis: Stroke: No - Discharge Data Discharge Date: 10/26/20 Discharge Disposition: Home, Self-Care 01 Condition: Good - Referral to Home Health Primary Care Physician: PCP Not In Area Will follow up with Dr. Aviles as his primary care physician - Discharge Diagnosis/Problem(s) (1) Hyperglycemia SNOMED Code(s): 52883344 ICD Code: R73.9 - HYPERGLYCEMIA, UNSPECIFIED Status: Acute Priority: High Current Visit: Yes (2) Obesity (BMI 35.0-39.9 without comorbidity) SNOMED Code(s): 990964620, 541188295 ICD Code: E66.9 - OBESITY, UNSPECIFIED Status: Acute Priority: Medium Current Visit: Yes (3) Pneumonia SNOMED Code(s): 099743376 ICD Code: J18.9 - PNEUMONIA, UNSPECIFIED ORGANISM Status: Acute Priority: High Current Visit: Yes Qualifiers: Pneumonia type: due to unspecified organism Laterality: right Lung location: lower lobe of lung Qualified Code(s): J18.9 - Pneumonia, unspecified organism (4) Pulmonary embolism and infarction SNOMED Code(s): 9752009695446 ICD Code: I26.99 - OTHER PULMONARY EMBOLISM WITHOUT ACUTE COR PULMONALE Status: Acute Priority: High Current Visit: Yes (5) Chewing tobacco use SNOMED Code(s): 94365953 ICD Code: Z72.0 - TOBACCO USE Status: Chronic Priority: Medium Current Visit: Yes (6) History of prediabetes SNOMED Code(s): 554634288, 079612328 ICD Code: Z87.898 - PERSONAL HISTORY OF OTHER SPECIFIED CONDITIONS Status: Chronic Priority: High Current Visit: Yes (7) Hypothyroidism SNOMED Code(s): 09969127 ICD Code: E03.9 - HYPOTHYROIDISM, UNSPECIFIED Status: Chronic Priority: Low Current Visit: No Qualifiers: Hypothyroidism type: unspecified Qualified Code(s): E03.9 - Hypothyroidism, unspecified - Patient Summary/Data Consults: Consultations 10/25/20 09:54 Respiratory Care Assess and Treatment [CONS] Routine 10/25/20 11:19 Consult to [facility] [CONS] Routine Recommended Follow-up Testing/Procedures: With Dr. Aviles for management of Eliquis dosage for pulmonary embolism and hypothyroidism. Hospital Course: 10/25/20 A: Submassive pulmonary embolism -Issues right-sided pulmonary embolism within the segmental and subsegmental branches, small right-sided pleural effusion as well as increased density within the right lung base most likely representing areas of early infarction -Bilateral lower extremity Dopplers negative for deep vein thrombosis -Travel Hx, recent car ride from [place] -No acute hypoxic respiratory failure Pulmonary Infarction -Possible early/developing infarction predicated on CTA DM II -A1C 6.4% Plan: -Eliquis 10mg BID x 7 days then 5mg BID -Echo to rule out R heart strain -Oxygen to maintain SPO2 greater than 90% -If patient becomes hypotensive consider TPA for treatment of massive pulmonary embolism -Outpatient workup for age-appropriate cancer screening 10/26/20 -Patient reports that he is doing much better. Still has dyspnea on exertion however is tolerating increase in activity. -He has denied any chest pain -Remains on room air -Using his incentive spirometer and flutter valve -Has received 2 doses of Rocephin and Zithromax IV -Currently receiving Eliquis 10 mg twice daily -Echocardiogram results show an ejection fraction of 60 to 65% without right heart strain -He has received education from the hospital dietitian -Discussed starting the patient on Metformin for prediabetes however he is refusing at this time; he states that he is going to try diet modification first. -Patient does use chewing tobacco however he is not wanting a nicotine patch at discharge Plan: -Discharge to home on Eliquis 10 mg twice daily for a total of 7 days then decrease the dose to 5 mg twice daily -Patient does have a follow exam scheduled with Dr. Aviles on October 31; she will then manage his dose of Eliquis for the remainder of his treatment for pulmonary embolism -Patient will be discharged on a 3-day course of oral Zithromax as he has received 2 doses of IV while in the hospital for the treatment of community- acquired pneumonia - Patient Instructions Diet: Diabetic Diet Activity: As Tolerated, Cough & Deep Breathe Other/Special Instructions: Follow-up with Dr. Aviles in the clinic on October 31. You will need to take Eliquis, a prescription blood thinner for your blood clot, 10 mg twice daily for a total of 7 days and then you will decrease the dose to [address] Aviles will follow up regarding the length needed for this treatment. You will need to take an antibiotic called Zithromax every day for another 3 days starting tomorrow. Continue to use your incentive spirometer for the next couple of weeks. Increase your activity at home. Increase your ambulation. - Discharge Plan *PRESCRIPTION DRUG MONITORING PROGRAM REVIEWED*: Not Applicable *COPY OF PRESCRIPTION DRUG MONITORING REPORT IN PATIENT RAD: Not Applicable Prescriptions/Med Rec: Azithromycin 250 mg PO DAILY #3 tablet Apixaban [Eliquis] 10 mg PO BID #40 tablet Tobacco Cessation Medication: Prescription Refused Home Medications: Home Meds Hydrocodone/Acetaminophen [Hydrocodone-Acetamin 7.5-325] 1 tab PO DAILY PRN 10/25/20 [History] Levothyroxine [Synthroid] 25 mcg PO ACBREAKFAST 10/25/20 [History] Zolpidem Tartrate 10 mg PO BEDTIME PRN 10/25/20 [History] Apixaban [Eliquis] 10 mg PO BID #40 tablet 10/26/20 [Rx] Azithromycin 250 mg PO DAILY #3 tablet 10/26/20 [Rx] Levothyroxine 0 mcg PO ACBREAKFAST tablet 10/26/20 [Rx] Oxygen Therapy Mode: Room Air Patient Handouts: Prediabetes, Pulmonary Embolism, Prediabetes Eating Plan, Smokeless Tobacco Information, Adult, Apixaban oral tablets, Steps to Quit Smoking Forms: ED Department Discharge Referrals: Chelly Aviles MD [Physician] - 10/31/20 12:30 pm (This is the check in time, your appointment is at 12:45. Please go to the first check in desk to the right inside the doors as this is different than the one you went to when you saw Dr Yu) - Discharge Summary/Plan Comment DC Time >30 min.: No - General Info Date of Service: 10/26/20 Admission Dx/Problem (Free Text: Pulmonary embolism; pneumonia Subjective Update: Fede is doing much better today. He states he feels like he has more energy and his appetite is returning. He is able to tolerate increase in activity and has been ambulating around the medical floor. He has also been using his incentive spirometer and flutter valve. He has not required oxygen. States he feels like he is ready to be discharged to home. Functional Status: Reports: Pain Controlled, Tolerating Diet, Ambulating, Urinating, Incentive Spirometry - Review of Systems General: Reports: No Symptoms HEENT: Reports: No Symptoms Pulmonary: Reports: Shortness of Breath (With increased exertion however he is tolerating an increase activity) Cardiovascular: Reports: No Symptoms Gastrointestinal: Reports: No Symptoms Genitourinary: Reports: No Symptoms Musculoskeletal: Reports: No Symptoms Skin: Reports: No Symptoms Neurological: Reports: No Symptoms Psychiatric: Reports: No Symptoms - Patient Data Vitals - Most Recent: Last Vital Signs Temp 98.4 F 10/26/20 08:27 Pulse 85 10/26/20 08:27 Resp 16 10/26/20 08:27 BP 144/72 H 10/26/20 08:27 Pulse Ox 92 L 10/26/20 08:27 Weight - Most Recent: 283 lb 8 oz I&O - Last 24 hours: Intake & Output 10/25/20 10/26/20 10/26/20 22:59 06:59 14:59 Intake Total 1567 1800 240 Output Total 1600 Balance 1567 200 240 Lab Results - Last 24 hrs: Laboratory Results - last 24 hr 10/25/20 10/26/20 10/26/20 Range/Units 06:26 06:50 06:50 WBC 10.96 H (4.23-9.07) K/mm3 RBC 4.30 L (4.63-6.08) M/mm3 Hgb 12.9 L (13.7-17.5) gm/dl Hct 38.8 L (40.1-51.0) % MCV 90.2 (79.0-92.2) fl MCH 30.0 (25.7-32.2) pg MCHC 33.2 (32.2-35.5) g/dl RDW Std Deviation 43.1 (35.1-43.9) fL Plt Count 206 (163-337) K/mm3 MPV 9.2 L (9.4-12.3) fl Neut % (Auto) 72.1 H (34.0-67.9) % Lymph % (Auto) 10.6 L (21.8-53.1) % [place] % (Auto) 16.4 H (5.3-12.2) % Eos % (Auto) 0.5 L (0.8-7.0) Baso % (Auto) 0.1 (0.1-1.2) % Neut # (Auto) 7.90 H (1.78-5.38) K/mm3 Lymph # (Auto) 1.16 L (1.32-3.57) K/mm3 [place] # (Auto) 1.80 H (0.30-0.82) K/mm3 Eos # (Auto) 0.06 (0.04-0.54) K/mm3 Baso # (Auto) 0.01 (0.01-0.08) K/mm3 Manual Slide Review Abnormal smear Sodium 139 (136-145) mEq/L Potassium 3.7 (3.5-5.1) mEq/L Chloride 102 (98-107) mEq/L Carbon Dioxide 27 (21-32) mEq/L Anion Gap 13.7 (5-15) BUN 12 (7-18) mg/dL Creatinine 1.0 (0.7-1.3) mg/dL Est Cr Clr Drug Dosing 77.39 mL/min Estimated GFR (MDRD) > 60 (>60) mL/min BUN/Creatinine Ratio 12.0 L (14-18) Glucose 121 H (80-115) mg/dL Calcium 7.9 L (8.5-10.1) mg/dL Magnesium 2.0 (1.8-2.4) mg/dl Procalcitonin 0.12 H ng/mL SHAMA Results - Last 24 hrs: Microbiology 10/25/20 09:07 Aerobic Blood Culture - Preliminary Blood - Venous NO GROWTH AFTER 1 DAY Anaerobic Blood Culture - Preliminary NO GROWTH AFTER 1 DAY 10/25/20 08:53 Aerobic Blood Culture - Preliminary Blood - Venous - Lab Draw NO GROWTH AFTER 1 DAY Anaerobic Blood Culture - Preliminary NO GROWTH AFTER 1 DAY Med Orders - Current: Current Medications Acetaminophen (Acetaminophen 325 Mg Tab) 650 mg PO Q4H PRN PRN Reason: Pain (Mild 1-3)/fever Hydrocodone Bitart/Acetaminophen (Acetaminophen/Hydrocodone 325-5 Mg Tab) 1 tab PO Q4H PRN PRN Reason: Pain Last Admin: 10/26/20 08:30 Dose: 1 tab Documented by: Albuterol/Ipratropium (Albuterol/Ipratropium 3.0-0.5 Mg/3 Ml Neb Soln) 3 ml NEB Q4H PRN PRN Reason: Shortness Of Breath/wheezing Apixaban (Apixaban 5 Mg Tab) 10 mg PO BID [facility] Stop: 10/31/20 21:01 Last Admin: 10/26/20 08:30 Dose: 10 mg Documented by: Docusate Sodium (Docusate Sodium 100 Mg Cap) 100 mg PO BID PRN PRN Reason: Constipation Azithromycin 500 mg/ Sodium (Chloride) 250 mls @ 250 mls/hr IV Q24H [facility] [place] Stop: 10/27/20 11:59 Last Admin: 10/26/20 11:38 Dose: 250 mls/hr Documented by: Ceftriaxone Sodium 2 gm/ (Sodium Chloride) 100 mls @ 200 mls/hr IV Q24H [facility] Last Admin: 10/26/20 08:32 Dose: 200 mls/hr Documented by: Levothyroxine Sodium (Levothyroxine 25 Mcg Tab Ptom) 0 mcg PO ACBREAKFAST [facility] Last Admin: 10/26/20 08:32 Dose: 25 mcg Documented by: Magnesium Hydroxide (Magnesium Hydroxide 400 Mg/5 Ml Susp 30 Ml Cup) 30 ml PO Q12H PRN PRN Reason: Constipation Miscellaneous Information (Remove Nicotine Patch) 1 ea TRDERM DAILY [facility] Last Admin: 10/26/20 10:08 Dose: Not Given Documented by: Morphine Sulfate (Morphine 4 Mg/Ml Syringe) 4 mg IVPUSH Q3H PRN PRN Reason: Pain Nicotine (Nicotine 14 Mg/24 Hr Patch) 14 mg TRDERM DAILY [facility] Last Admin: 10/26/20 08:34 Dose: Not Given Documented by: Ondansetron HCl (Ondansetron 4 Mg/2 Ml Sdv) 4 mg IV Q6H PRN PRN Reason: Nausea/Vomiting Sodium Chloride (Sodium Chloride 0.9% 10 Ml Syringe) 10 ml FLUSH ASDIRECTED PRN PRN Reason: Keep Vein Open Last Admin: 10/25/20 05:52 Dose: 10 ml Documented by: Discontinued Medications Apixaban (Apixaban 5 Mg Tab) 5 mg PO ONETIME ONE Stop: 10/25/20 08:35 Last Admin: 10/25/20 09:49 Dose: 5 mg Documented by: Apixaban (Apixaban 5 Mg Tab) 5 mg PO ONETIME ONE Stop: 10/25/20 09:49 Last Admin: 10/25/20 10:13 Dose: 5 mg Documented by: Sodium Chloride (Normal Saline) 45 mls @ 40 mls/hr IV ASDIRECTED [facility] Last Admin: 10/25/20 07:40 Dose: 40 mls/hr Documented by: Ceftriaxone Sodium 2 gm/ (Sodium Chloride) 100 mls @ 200 mls/hr IV ONETIME ONE Stop: 10/25/20 09:03 Last Admin: 10/25/20 09:28 Dose: 200 mls/hr Documented by: Ceftriaxone Sodium 2 gm/ (Sodium Chloride) 100 mls @ 200 mls/hr IV Q24H [facility] Lactated Ringer's (Ringers, Lactated) 1,000 mls @ 100 mls/hr IV ASDIRECTED [facility] Stop: 10/25/20 19:59 Last Admin: 10/25/20 10:20 Dose: 100 mls/hr Documented by: Iopamidol (Iopamidol 755 Mg/Ml 100 Ml Bottle) 100 ml IVPUSH ONETIME ONE Stop: 10/25/20 06:18 Last Admin: 10/25/20 07:40 Dose: 100 ml Documented by: Ketorolac Tromethamine (Ketorolac 15 Mg/Ml Sdv) 15 mg IVPUSH ONETIME ONE Stop: 10/25/20 21:08 Last Admin: 10/25/20 21:39 Dose: 15 mg Documented by: Levothyroxine Sodium (Levothyroxine 50 Mcg Tab) 50 mcg PO ACBREAKFAST [facility] Sodium Chloride (Sodium Chloride 0.9% 10 Ml Syringe) 10 ml FLUSH ONETIME PRN PRN Reason: Keep Vein Open Last Admin: 10/25/20 07:40 Dose: 10 ml Documented by: - Exam Quality Assessment: Reports: DVT Prophylaxis (Eliquis). Denies: Supplemental Oxygen General: Reports: Alert, Oriented, Cooperative, No Acute Distress HEENT: Reports: Pupils Equal, Mucous Membr. Moist/[place] Neck: Reports: Supple, Trachea Midline Lungs: Reports: Normal Respiratory Effort, Crackles (Fine crackles noted right posterior lower lobe). Denies: Clear to Auscultation Cardiovascular: Reports: Regular Rate, Regular Rhythm, No Murmurs GI/Abdominal Exam: Normal Bowel Sounds, Soft, Non-Tender, No Distention (Male) Exam: Deferred Rectal (Males) Exam: Deferred Back Exam: Reports: Normal Inspection, Full Range of Motion Extremities: Normal Inspection, Normal Range of Motion, Non-Tender, No Pedal Edema, Normal Capillary Refill Skin: Reports: Warm, Dry, Intact Neurological: Reports: No New Focal Deficit Psy/Mental Status: Reports: Alert, Normal Affect, Normal Mood
== END 2020-10-26 16:28 | disposition home or self-care (01) ==
LOC: JD.ED 05:06 → JD.MS 09:04
PROVIDERS: ADMIT Internal Medicine; ATTEND Internal Medicine
DX: I26.99 Other pulmonary embolism without acute cor pulmonale (principal); J18.9 Pneumonia, unspecified organism; E03.9 Hypothyroidism, unspecified; E11.65 Type 2 diabetes mellitus with hyperglycemia; E66.9 Obesity, unspecified; Z68.39 Body mass index [BMI] 39.0-39.9, adult; D72.829 Elevated white blood cell count, unspecified; J90 Pleural effusion, not elsewhere classified; I25.10 Atherosclerotic heart disease of native coronary artery without angina pectoris; Z20.822 Contact with and (suspected) exposure to COVID-19; Z86.16 Personal history of COVID-19; Z72.0 Tobacco use; Z87.898 Personal history of other specified conditions; Z79.899 Other long term (current) drug therapy; Z79.890 Hormone replacement therapy; Z88.0 Allergy status to penicillin
CPT/HCPCS: 0240U; 36415; 71275; 80048; 80053; 83036; 83605; 83735; 84145; 84484; 85025; 86738; 87040; 93005; 93306; 93970; 94668; 96365; 96366; 96367; 96375; 99285; A9270; G0378; J0456; J0696; J1885; J7050; J7120; Q9967; 93010; 96374; 99284